=== PATIENT | female | born 1970 | race Asian ===

== ENCOUNTER 2017-08-14 06:13 | Day surgery (SDC) | payer BC ==
[2017-08-14] VITALS (13 sets, daily range): BP systolic 101–123; BP diastolic 64–76
[~2017-08-14] VITALS: Ht 162.6 cm; Wt 49.0 kg
[~2017-08-14 06:13] MED LIST: NKM
[2017-08-14] MEDS ORDERED: cefOXitin Sod 2 GM in NS 110 ML IVPB ONE (07:00)
[2017-08-14] MEDS ORDERED: cefOXitin 2gm Inj IVP ONE (07:00)
[2017-08-14] MEDS ORDERED: ProvayBlue 5mg/ml 10ml amp INJ ONE (07:15)
[2017-08-14] MEDS ORDERED: LR 1000ml 1,000 ML IVLG SCH (07:19)
--- NOTE | 2017-08-14 07:19 | Anethesia Preoperative Eval ---
Anesthesia Pre-op PMH/ROS General Date of Evaluation: Aug 14, 2017 Anesthesiologist: Christiano ASA Score: ASA 2 Mallampati Score Class I : Soft palate, uvula, fauces, pillars visible Class II: Soft palate, uvula, fauces visible Class III: Soft palate, base of uvula visible Class IV: Only hard plate visible Mallampati Classification: Class I Surgeon: Tena Diagnosis: Pelvic pain Surgical Procedure: Pelviscopy, hysteroscopy d&C Anesthesia History: none Family History: no anesthesia problems Allergies: Coded Allergies: No Known Allergies (Unverified , 08/13/17) Medications: see eMAR Past Medical History Cardiovascular: Denies: HTN, CAD, MO, valve dz, arrhythmia, other Pulmonary: Denies: asthma, COPD, CLAUDIO, other Gastrointestinal/Genitourinary: Reports: other - endometriosis, Denies: GERD, CRI, ESRD Neurologic/Psychiatric: Reports: depression/anxiety, Denies: dementia, CVA, TIA, other Endocrine: Denies: DM, hypothyroidism, steroids, other HEENT: Denies: cataract (L), cataract (R), glaucoma, [place] (L), [place] (R), other Hematology/Immune: Denies: anemia, DVT, bleeding disorder, other Musculoskeletal/Integumentary: Denies: OA, RA, DJD, DDD, edema, other PSxH Narrative: nasal sx, jaw sx Anesthesia Pre-op Phys. Exam Physician Exam Last Vital Signs Date Time Temp Pulse Resp B/P (MAP) Pulse Ox O2 Delivery O2 Flow Rate FiO2 08/14/17 06:50 97.7 75 20 111/71 100 Room Air 97.7 Constitutional: NAD Cardiovascular: RRR Respiratory: CTA Airway Exam Mallampati Score: Class I MO: full ROM: full Teeth: intact Anesthesia Pre-op A/P Labs see chart Urine Test Test 08/14/17 06:25 Urine HCG, Qualitative Negative Studies Pre-op Studies: EKG - sr Risk Assessment & Plan Assessment: ASA II Plan: GA Status Change Before Surgery: No Pre-Antibiotics Drug: Cefoxitin 2g Given Within 1 Hr of Incision: Yes TATY BATISTA M.D. Aug 14, 2017 07:19
[2017-08-14] MEDS ORDERED: Ropivacaine 5mg/ml Vial 30ml INJ ONE ×2 (07:24→08:13)
[2017-08-14] MEDS ORDERED: cefOXitin 2gm Inj ONE (07:24)
[2017-08-14] MEDS ORDERED: Zemuron 50mg/5ml Inj IV ONE (07:30)
[2017-08-14] MEDS ORDERED: Hydromorphone 0.5mg/0.5ml inj IVP PRN (07:30)
[2017-08-14] MEDS ORDERED: Ketorolac 30mg Inj ONE (07:30)
[2017-08-14] MEDS ORDERED: DiphenhydrAMINE 50mg/ml Inj IVP PRN (07:30)
[2017-08-14] MEDS ORDERED: Midazolam 2mg/2ml Inj IVP PRN (07:30)
[2017-08-14] MEDS ORDERED: fentaNYL 100 mcg/2 mL IV ONE (07:30)
[2017-08-14] MEDS ORDERED: Sterile Water Irrig 1000ml IRRIG ONE (07:30)
[2017-08-14] MEDS ORDERED: Propofol 200mg/20ml IV ONE (07:30)
[2017-08-14] MEDS ORDERED: LR 1000ml ONE (07:30)
[2017-08-14] MEDS ORDERED: fentaNYL 100 mcg/2 mL IV PRN (07:30)
[2017-08-14] MEDS ORDERED: Ketorolac 30mg Inj IV PRN (07:30)
[2017-08-14] MEDS ORDERED: Lidocaine 1% MPF 10mg/ml 5ml ONE (07:30)
[2017-08-14] MEDS ORDERED: NS Irrig 1000ml ONE (07:30)
[2017-08-14] MEDS ORDERED: Midazolam 2mg/2ml Inj ONE (07:30)
--- NOTE | 2017-08-14 07:34 | Pre-Procedure Note/Attestation ---
Pre-Procedure Note/Attestation Complete Prior to Procedure Planned Procedure: not applicable Procedure Narrative: Video Laser Pelviscopy, video hysteroscopy Indications for Procedure Pre-Operative Diagnosis: Chronic pelvic pain, dysmenorrhea Attestation I attest that I discussed the nature of the procedure; its benefits; risks and complications; and alternatives (and the risks and benefits of such alternatives ), prior to the procedure, with the patient (or the patient's legal textile machinery sales representative). I attest that, if there was a reasonable possibility of needing a blood transfusion, the patient (or the patient's legal textile machinery sales representative) was given the [facility] standardized written summary, pursuant to the [place] Blood Safety Act ([place] [facility] and Safety Code # 1645, as amended). I attest that I re-evaluated the patient just prior to the surgery and that there has been no change in the patient's H&P, except as documented below:NONE RAKEL NULL Aug 14, 2017 07:34
--- NOTE | 2017-08-14 07:56 | Immediate Post-Op Evaluation ---
Immediate Post-Op Evalulation Immediate Post-Op Evalulation Procedure: Pelviscopy, hysteroscopy D&C Date of Evaluation: Aug 14, 2017 Time of Evaluation: 09:32 IV Fluids: 900 Blood Products: 0 Estimated Blood Loss: min Urinary Output: 250 Blood Pressure Systolic: 108 Blood Pressure Diastolic: 65 Pulse Rate: 77 Respiratory Rate: 16 O2 Sat by Pulse Oximetry: 100 Temperature (Fahrenheit): 97.7 Pain Score (1-10): 0 Nausea: No Vomiting: No Complications 0 Patient Status: awake, reacts, patent, none Hydration Status: adequate Drug: Cefoxitin 2g Given Within 1 Hr of Incision: Yes Time Given: 07:35 TATY BATISTA M.D. Aug 14, 2017 07:56
--- NOTE | 2017-08-14 07:57 | 48 Hour Post Anesthesia Eval ---
Post Anesthesia Evaluation Procedure: Pelviscopy, hysteroscopy D&C Date of Evaluation: Aug 14, 2017 Airway: patent Nausea: No Vomiting: No Pain Intensity: 0 Hydration Status: adequate Cardiopulmonary Status: at baseline Mental Status/LOC: patient returned to baseline Post-Anesthesia Complications: 0 Follow-up care needed: ready to discharge TATY BATISTA M.D. Aug 14, 2017 07:56
--- NOTE | 2017-08-14 09:25 | Brief Operative Note ---
Immediate Post Operative Note Operative Note Pre-op Diagnosis: Chronic pelvic pain, dysmenorrhea Post-op Diagnosis: same as pre-op Findings: consistent w/pre-op dx studies - area of endometriosis on Left Uterosacral Ligament, Colon adhesions to Left pelvic sidewall, other Surgeon: Rakel Null MD [employer]: Ivett Swanson MD Anesthesiologist: Lucy Yung MD Anesthesia: general Specimen: yes - [facility] Complications: none Condition: stable Fluids: LR Estimated Blood Loss: minimal Drains: none Implant(s) used?: No RAKEL NULL Aug 14, 2017 09:25
[2017-08-14] MEDS ORDERED: Ketorolac 30mg Inj IM SCH (09:45)
[2017-08-14] MEDS ORDERED: D5 1/2NS 1,000 ML IV SCH (09:45)
[2017-08-14] MEDS ORDERED: Tylenol #3 tab (300mg/30mg) ORAL PRN (09:45)
[2017-08-14] MEDS ORDERED: Norco 5mg/325mg tab ORAL PRN (09:45)
[2017-08-14] MEDS ORDERED: HYDROmorphone 1mg/ml Carpuject SUBQ PRN (09:45)
--- NOTE | 2017-08-14 18:30 | Operative Note - Dictated ---
DATE OF OPERATION: 08/14/2017 PREOPERATIVE DIAGNOSIS: Chronic pelvic pain. POSTOPERATIVE DIAGNOSIS: Chronic pelvic pain with area of endometriosis on the left uterosacral ligament and colon adhesions to the left pelvic sidewall. PROCEDURE PERFORMED: Video hysteroscopy with endometrial curettage, video laser pelviscopy with lysis of endometriosis on left uterosacral ligament, video laser pelviscopy with enterolysis of left colon adhesions, and video pelviscopy with chromotubation. SURGEON: Aldo Madsen M.D. NURSE INFORMATICS EDUCATOR: Ivett Swanson M.D. ANESTHESIA: General endotracheal. ANESTHESIOLOGIST: Lucy Alvarado M.D. PROCEDURE IN DETAIL: After all the appropriate consents were signed, the patient was brought to the operating room, placed on table in supine position. General endotracheal anesthesia was induced without complication. The patient was then placed in a dorsal lithotomy position. Perineum, vagina, and abdomen were prepped and draped in the usual fashion. The procedure began with the video hysteroscopy where the cervix was grasped, dilated, and video hysteroscope was introduced. The uterine cavity revealed no submucosal fibroids or endometrial polyps. There were some areas of endometrial overgrowth, however, they did not appear to be polypoid. At this time, endometrial scrapings were performed and the endometrial specimen was submitted to pathology for evaluation. Uterine manipulator was placed and the procedure continued at its abdominal portion. The umbilical incision was made, a Veress needle was advanced, and the abdomen was insufflated to 15 mmHg. Two additional ports were placed in the lower midline and left abdomen. At this time, pelvis was well visualized after the trocars were atraumatically placed. There did not appear to be any collateral damage to the bowel or omentum or any vasculature from placement of the trocars. At this time, the procedure continued with evaluation of the pelvis. Upper abdomen was examined and found to be within normal limits. The appendix was examined and was found to be completely normal. The uterus was elevated. The uterus itself appeared to be within normal limits, normal size. The tubes on both sides looked completely within normal limits and thin and elegant. The posterior cul-de-sac was examined and there was an area of likely endometriosis on the area of the left uterosacral ligament. The posterior cul-de-sac itself was evaluated and found to be within normal limits. The patient's left pelvic sidewall was examined and the colon was adhesed with multiple adhesions to the left pelvic side wall overlying the iliac vessels. At this time, the procedure continued with evaluation of the right side and the right side now was within normal limits without endometriosis or adhesions. Both ovaries appeared to be within normal limits, small and not enlarged. At this time, CO2 laser was used to vaporize the endometriosis on the left uterosacral ligament. When no additional endometriosis was noted, the procedure continued with lysis of the colon adhesions. This was undertaken both with laser and with sharp dissection with scissors. At this time, both tubes were evaluated and the chromotubation was performed with blue dye. The tube on the right side was fully patent, however, on the tube on the left side, no dye was passing through. The tube, however, looked very good and did not have any visual abnormalities. At this time, all the photographs and videos were taken and the patient was placed in supine position after the debris and the dye and the blood was irrigated and suctioned. The trocars were removed one after another under direct visualization of laparoscope. The punctures were evaluated and found to be completely hemostatic from inside. The laparoscope was removed last and the incisions were closed using 0 Vicryl suture at the fascial layer and 4-0 at the skin layer. The incisions were covered with Steri-Strips and benzoin. The patient was now awakened and placed in the supine position, and the dressing was placed and she was transferred to the recovery room in excellent condition. Aldo Madsen M.D. DR: FREDDIE JOB#: [id number] CC:
== END 2017-08-14 13:45 | disposition home or self-care (01) ==
LOC: SUR 06:13
DX: N80.0 Endometriosis of uterus (principal); N73.6 Female pelvic peritoneal adhesions (postinfective); K66.0 Peritoneal adhesions (postprocedural) (postinfection); F41.9 Anxiety disorder, unspecified; F32.9 Major depressive disorder, single episode, unspecified
CPT/HCPCS: 58350; 58558; 58662; 81025; J0694; J1170; J1885; J2250; J2405; J2704; J2795; J3010; J7120; Q9968; 94003; 94150